=== PATIENT | female | born 1970 | race Caucasian/White ===

== ENCOUNTER → 2017-01-21 | Outpatient (CLI) | payer OTHER ==
--- NOTE | 2017-01-21 11:56 | EST ---
DATE OF SERVICE: 01/21/2014 AGE: 46Y SEX: F HT: 61" WT: 105 lbs. Protocol Julio Cesar: X Other: Stage: I Dur. of Exercise: 3 minutes *Heart Rate Blood Pressure *Rest: 113 Rest: 216/94 * *Max. Achieved: 134 Maximum BP: 216/94 85% PMHR: ( ) 100% PMHR: ( ) *METS: 4 INDICATIONS: Chest pain. MEDICATIONS: Baseline EKG shows sinus rhythm, normal axis, normal intervals. Patient exercised on Julio Cesar protocol for a total of 3 minutes, achieving 4 METs, 77% of predicted maximal heart rate. The test was stopped due to inability to walk. CONCLUSIONS: 1. Extremely poor exercise tolerance. 2. Inconclusive EKG part of the stress test due to inability to attain target heart rate.
== END ==
LOC: RADNMMAIN 10:23
PROVIDERS: ATTEND Internal Medicine
DX: J20.9 Acute bronchitis, unspecified (principal); R07.89 Other chest pain
CPT/HCPCS: 93017

== ENCOUNTER → 2017-02-26 | Outpatient (CLI) | payer OTHER | END | disposition home or self-care (01) | LOC: LABWHC1 08:52 | PROVIDERS: ATTEND Psychiatry & Neurology Neurology | DX: G35 Multiple sclerosis (principal) | CPT/HCPCS: 36415; 82306; 84439; 84443; 84450; 84460 ==

== ENCOUNTER → 2017-02-28 | Outpatient (CLI) | payer OTHER ==
--- NOTE | 2017-03-04 10:33 | MM ---
Reason for exam: screening (asymptomatic). Last mammogram was performed 1 year and 3 months ago. Physical Findings: A clinical breast exam by your physician is recommended on an annual basis and results should be correlated with mammographic findings. MG Screening Mammo w CAD Bilateral CC and MLO view(s) were taken. Prior study comparison: December 01, 2015, bilateral MG screening mammo w CAD. The breast tissue is extremely dense which could obscure a lesion on mammography. No significant changes when compared with prior studies. ASSESSMENT: Negative, BI-RAD 1 RECOMMENDATION: Routine screening mammogram of both breasts in 1 year. Patient should continue monthly self breast exams. A negative mammogram should not preclude additional follow up of suspicious palpable abnormalities.
== END | disposition home or self-care (01) ==
LOC: RADMAMWWP 10:02
PROVIDERS: ATTEND Obstetrics & Gynecology
DX: Z12.31 Encounter for screening mammogram for malignant neoplasm of breast (principal)

== ENCOUNTER → 2017-03-08 | Outpatient (CLI) | payer OTHER ==
--- NOTE | 2017-03-09 07:08 | MR ---
EXAMINATION TYPE: MR lumbar spine wo con DATE OF EXAM: 03/08/2017 10:44 AM COMPARISON: 06/09/2015 HISTORY: 46-year-old female with low back pain TECHNIQUE: Multiplanar, multisequence images of the lumbar spine were acquired. FINDINGS: Vertebral body heights are preserved and alignment is maintained. No suspicious bone marrow replacement. Mild desiccation of the L4-L5 and L5-S1 intervertebral discs with diffuse disc bulging. Mild disc hei ght loss at L5-S1. At L4-L5, there is a left intraforaminal annular fissure redemonstrated. Conus medullaris is normal. From T12 through L4 levels, no significant spinal canal or neuroforaminal stenosis. At L4-L5, mild bulging disc with a left intraforaminal annular fissure. Disc material here closely ap proaches the traversing left L5 nerve root. There is minimal bilateral inferior neural foraminal narr owing. No spinal canal stenosis. Overall changes are not significantly progressed from prior. At L5-S1, there is mild diffuse disc bulge without significant spinal canal or neuroforaminal stenosi s. No prevertebral or paravertebral soft tissue abnormality. IMPRESSION: 1. Relatively similar mild degenerative disc disease at L4-L5 and L5-S1 with mild disc desiccation an d mild bulging discs. Mild disc height loss at L5-S1. 2. Redemonstrated left intraforaminal annular fissure at L4-L5. Disc material here closely approaches the traversing left L5 nerve root. 3. Minimal bilateral inferior foraminal narrowing at L4-L5. No high-grade foraminal or canal compromi se.
== END | disposition home or self-care (01) ==
LOC: RADMRIMAIN 10:06
PROVIDERS: ATTEND Physical Medicine & Rehabilitation
DX: M51.17 Intervertebral disc disorders with radiculopathy, lumbosacral region (principal); M99.73 Connective tissue and disc stenosis of intervertebral foramina of lumbar region
CPT/HCPCS: 72148

== ENCOUNTER → 2018-03-20 | Outpatient (CLI) | payer OTHER ==
--- NOTE | 2018-03-23 09:54 | MM ---
Reason for exam: screening (asymptomatic). Last mammogram was performed 1 year and 1 month ago. Physical Findings: A clinical breast exam by your physician is recommended on an annual basis and results should be correlated with mammographic findings. MG Screening Mammo w CAD Bilateral CC and MLO view(s) were taken. Prior study comparison: February 28, 2017, bilateral MG screening mammo w CAD. December 01, 2015, bilateral MG screening mammo w CAD. The breast tissue is extremely dense which could obscure a lesion on mammography. No significant changes when compared with prior studies. ASSESSMENT: Negative, BI-RAD 1 RECOMMENDATION: Routine screening mammogram of both breasts in 1 year.
== END | disposition home or self-care (01) ==
LOC: RADMAMWWP 14:39
PROVIDERS: ATTEND Obstetrics & Gynecology
DX: Z12.31 Encounter for screening mammogram for malignant neoplasm of breast (principal)
CPT/HCPCS: 77067

== ENCOUNTER → 2018-08-27 | Outpatient (CLI) | payer OTHER ==
--- NOTE | 2018-08-27 23:55 | MR ---
EXAMINATION TYPE: MR brain wo con DATE OF EXAM: 08/27/2018 COMPARISON: 10/25/2015 HISTORY: Multiple sclerosis. Weakness. Standard multiplanar, multisequence MRI departmental protocol Exam without contrast. Ventricles have normal size. There is no mass effect nor midline shift. There is no sign of intracr anial hemorrhage. On the T2 and FLAIR images there are scattered white matter high signal foci in bot h cerebral hemispheres predominantly in the parietal lobes. These measure up to 6 mm. Total number is less than 15. Cerebellum appears normal. Brainstem appears normal. Sella turcica is normal. Corpus c allosum appears normal. There is no evidence of cortical infarct. Impression Periventricular white matter lesions as above consistent with demyelinating disease. No cortical infa rct. No significant change compared to old exam. I see no evidence of any new white matter disease.
== END | disposition home or self-care (01) ==
LOC: RADMRIMAIN 07:06
PROVIDERS: ATTEND Psychiatry & Neurology Neurology
DX: G93.89 Other specified disorders of brain (principal); G35 Multiple sclerosis
CPT/HCPCS: 70551

== ENCOUNTER → 2019-02-05 | Outpatient (CLI) | payer OTHER ==
--- NOTE | 2019-02-05 08:26 | MR ---
EXAMINATION TYPE: MR hip LT wo con DATE OF EXAM: 02/05/2019 COMPARISON: None. HISTORY: Pain in left hip Standard multiplanar, multisequence MRI departmental protocol Multiplanar, multisequence images of the pelvis focus in the left hip were acquired. FINDINGS: Bone marrow signal intensity is preserved. There is no suspicious edema seen throughout the pelvis including left hip. Femoral head shapes are symmetric and maintained bilaterally. No serpigin ous low T1 signal to suggest avascular necrosis. There are symmetric physiologic tiny bilateral hip j oint effusions. Mild increased fluid signal at level of right greater trochanter is seen coronal image 9. No suspicio us fluid signal seen at level of left greater or lesser trochanters. Muscle bulk bilateral thighs is symmetric and felt within normal limits. No suspicious groin hernia o r adenopathy is present bilaterally. In the left hip labrum appears grossly intact given limitation o f nonarthrogram study. Patient has very little intra-abdominal fat. Bladder is poorly distended and thus suboptimally evalua james. There is bulky lobulated anteverted uterus with intrauterine fibroids measuring up to 2.5 cm paresh g axis axial image 11. No concerning pelvic fluid collection seen. No suspicious bowel dilatation not ed. IMPRESSION: No significant finding seen to account for patient's symptoms of left hip pain. Fibroid uterus noted.
== END | disposition home or self-care (01) ==
LOC: RADMRIMAIN 07:41
PROVIDERS: ATTEND Internal Medicine
DX: D25.9 Leiomyoma of uterus, unspecified (principal); M25.552 Pain in left hip

== ENCOUNTER → 2019-07-22 | Outpatient (CLI) | payer OTHER ==
--- NOTE | 2019-07-22 11:20 | MM ---
Reason for exam: screening (asymptomatic). Last mammogram was performed 1 year and 4 months ago. History: Patient is postmenopausal. Took hormonal contraceptives for 1 month. Physical Findings: A clinical breast exam by your physician is recommended on an annual basis and results should be correlated with mammographic findings. MG Screening Mammo w CAD Bilateral CC and MLO view(s) were taken. Prior study comparison: March 20, 2018, bilateral MG screening mammo w CAD. February 28, 2017, bilateral MG screening mammo w CAD. The breast tissue is extremely dense which could obscure a lesion on mammography. Developing asymmetry right posterior outer aspect. ASSESSMENT: Incomplete: need additional imaging evaluation, BI-RAD 0 RECOMMENDATION: Special view mammogram of the right breast. If lesion persists on supplemental views, image directed ultrasound is recommended. [facility] will attempt to contact patient to return for supplemental views and ultrasound if indicated.
== END | disposition home or self-care (01) ==
LOC: RADMAMWWP 10:17
PROVIDERS: ATTEND Obstetrics & Gynecology
DX: Z12.31 Encounter for screening mammogram for malignant neoplasm of breast (principal)
CPT/HCPCS: 77067

== ENCOUNTER → 2019-08-03 | Outpatient (CLI) | payer OTHER ==
--- NOTE | 2019-08-03 12:19 | MM ---
Reason for exam: additional evaluation requested from abnormal screening. Last mammogram was performed less than 1 month ago. History: Patient is postmenopausal. Took hormonal contraceptives for 1 month. Physical Findings: Nurse did not find any significant physical abnormalities on exam. MG Work Up Mamm w CAD RT Spot compression CC, spot compression MLO, ML, and LM view(s) were taken of the right breast. Prior study comparison: July 22, 2019, bilateral MG screening mammo w CAD. March 20, 2018, bilateral MG screening mammo w CAD. The breast tissue is extremely dense which could obscure a lesion on mammography. 5mm central posterior and lateral nodule persists. These results were verbally communicated with the patient and result sheet given to the patient on 08/03/19. ASSESSMENT: Incomplete: need additional imaging evaluation, BI-RAD 0 RECOMMENDATION: Ultrasound of the right breast. (lateral half)
--- NOTE | 2019-08-03 12:21 | USB ---
Reason for exam: additional evaluation requested from abnormal screening. History: Patient is postmenopausal. Took hormonal contraceptives for 1 month. US Breast Workup Limited RT Right limited breast ultrasound including focal area of concern, retroareolar and axilla demonstrates a 4 x 3 x 4mm oval, cystic lesion at 7 o'clock. Scanned 6-12 o'clock. This may correspond to the mammographic finding. These results were verbally communicated with the patient and result sheet given to the patient on 08/03/19. ASSESSMENT: Probably benign, BI-RAD 3 RECOMMENDATION: Follow-up diagnostic mammogram of the right breast in 6 months.
== END | disposition home or self-care (01) ==
LOC: RADMAMWWP 10:29
PROVIDERS: ATTEND Obstetrics & Gynecology
DX: R92.8 Other abnormal and inconclusive findings on diagnostic imaging of breast (principal)
CPT/HCPCS: 77065

== ENCOUNTER → 2020-02-18 | Outpatient (CLI) | payer OTHER ==
--- NOTE | 2020-02-18 11:56 | XR ---
EXAMINATION TYPE: XR chest 2V DATE OF EXAM: 02/18/2020 COMPARISON: Chest x-ray August 25, 2015 HISTORY: History of COPD with left-sided pain. TECHNIQUE: Frontal and lateral views of the chest are obtained. FINDINGS: There is no focal air space opacity, pleural effusion, or pneumothorax seen. The cardiac silhouette size is within normal limits. The osseous structures are intact. IMPRESSION: No acute cardiopulmonary process. No significant change from prior.
== END | disposition home or self-care (01) ==
LOC: RADXRMAIN 11:36
PROVIDERS: ATTEND Internal Medicine
DX: R07.9 Chest pain, unspecified (principal)
CPT/HCPCS: 71046

== ENCOUNTER → 2020-08-08 | Outpatient (CLI) | payer OTHER ==
--- NOTE | 2020-08-08 11:08 | MM ---
Reason for exam: additional evaluation requested from prior study. Last mammogram was performed 1 year ago. History: Patient is postmenopausal. Took hormonal contraceptives for 1 month. Physical Findings: Nurse did not find any significant physical abnormalities on exam. MG Diagnostic Mammo w CAD KATELYNN Bilateral CC, MLO, and XCCL view(s) were taken. Prior study comparison: August 03, 2019, right breast MG work up mamm w CAD RT. July 22, 2019, bilateral MG screening mammo w CAD. The breast tissue is extremely dense which could obscure a lesion on mammography. Finding: There is a 7 mm equal density (isodense), obscured oval mass in the outer quadrant, central position of the right breast. These results were verbally communicated with the patient and result sheet given to the patient on 08/08/20. ASSESSMENT: Incomplete: need additional imaging evaluation, BI-RAD 0 RECOMMENDATION: Ultrasound of the right breast.
--- NOTE | 2020-08-08 11:10 | USB ---
Reason for exam: additional evaluation requested from abnormal screening. History: Patient is postmenopausal. Took hormonal contraceptives for 1 month. US Breast Limited RT Right limited breast ultrasound including focal area of concern, retroareolar and axilla demonstrates a 0.5 x 0.5 x 0.3cm oval, cystic lesion at 7 o'clock and a 0.5 x 0.4 x 0.3cm oval, hypoechoic lymph node at 7 o'clock. These results were verbally communicated with the patient and result sheet given to the patient on 08/08/20. ASSESSMENT: Probably benign, BI-RAD 3 RECOMMENDATION: Follow-up diagnostic mammogram and ultrasound of the right breast in 6 months.
== END | disposition home or self-care (01) ==
LOC: RADMAMWWP 09:32
PROVIDERS: ATTEND Obstetrics & Gynecology
DX: R92.8 Other abnormal and inconclusive findings on diagnostic imaging of breast (principal)
CPT/HCPCS: 77066

== ENCOUNTER 2021-11-14 12:29 | Emergency (ER) | payer OTHER ==
[2021-11-14 12:54] VITALS: BP 122/79; PULSE 111; RESP 20; TEMP 97.8
[2021-11-14 13:16] LABS: Basophils % (A) 0 %; Eosinophils # (A) 0.3 k/uL (0-0.7); Eosinophils % (A) 3 %; HCT 41.2 % (34.0-46.0); HGB 13.7 gm/dL (11.4-16.0); Lymphocytes # (A) 2.4 k/uL (1.0-4.8); Lymphocytes % (A) 19 %; MCH 31.6 pg (25.0-35.0); MCHC 33.1 g/dL (31.0-37.0); MCV 95.4 fL (80.0-100.0); Mean Platelet Volume 7.2; Monocytes # (A) 0.7 k/uL (0-1.0); Monocytes % (A) 6 %; Neutrophils # (A) 8.7 k/uL (1.3-7.7); Neutrophils % (A) 71 %; RBC 4.32 m/uL (3.80-5.40); RDW 13.5 % (11.5-15.5); WBC 12.3 k/uL (3.8-10.6)
[2021-11-14 13:27] LABS: Platelet Count 1213 k/uL (150-450)
[2021-11-14 13:34] LABS: ALT 9 U/L (4-34); AST 16 U/L (14-36); African American GFR (CKD) >90 (>60 ml/min/1.73 sqM); Albumin 4.2 g/dL (3.5-5.0); Alkaline Phosphatase 93 U/L (38-126); Anion Gap 14 mmol/L; Blood Urea Nitrogen 15 mg/dL (7-17); Calcium 9.8 mg/dL (8.4-10.2); Carbon Dioxide 19 mmol/L (22-30); Chloride 105 mmol/L (98-107); Glucose 141 mg/dL (74-99); Lipase 64 U/L (23-300); Non-African American GFR(CKD) >90 (>60 ml/min/1.73 sqM); Potassium 3.3 mmol/L (3.5-5.1); Sodium 138 mmol/L (137-145); Total Bilirubin 0.7 mg/dL (0.2-1.3); Total Protein 7.3 g/dL (6.3-8.2)
== END 2021-11-14 14:47 | disposition left against medical advice (07) ==
LOC: EC 12:29
DX: Z53.21 Procedure and treatment not carried out due to patient leaving prior to being seen by health care provider (principal)
CPT/HCPCS: 36415; 80053; 83605; 83690; 85025; 99499

== ENCOUNTER → 2023-04-19 | Outpatient (CLI) | payer OTHER ==
--- NOTE | 2023-04-20 18:19 | MR ---
EXAMINATION TYPE: MR brain and iac wo/w con DATE OF EXAM: 04/19/2023 8:18 AM CLINICAL INDICATION:Female, 52 years old with history of H90.42 asymmetric hearing loss; COMPARISON: MR brain 08/27/2018, 10/25/2015 TECHNIQUE: Multi planar, multi sequence imaging was performed through the brain. Specialized thin s equences were obtained through the internal auditory canals. Pre-and post gadolinium sequences were obtained. MR contrast: IV Contrast: 5 cc Gadavist FINDINGS: The pappas-white junctions, ventricular system, and cisterns appear unremarkable. Scattered foci of h igh T2 signal intensity are seen within the periventricular white matter. Some of these white matter lesions are orthogonal to the ventricles. View of these lesions appear more prominent/fractionally in creased in size lesions, example includes the left frontal lobe the white matter change now measuring 5 mm, previously 4 mm. Midline no structures show no abnormality. Diffusion-weighted imaging shows no evidence of restricted diffusion. The susceptibility weighted images do not reveal any evidence for micro-hemorrhage. The bone marrow signal is within normal limits. Paranasal sinuses and mastoid air cells: Mild scattered paranasal sinus disease. Visualized orbits: Orbital contents are intact. After administration of gadolinium, no abnormal enhancement is seen. The internal auditory canal sequences demonstrate no significant irregularity. The 7th cranial nerve s, 8 cranial nerves, and cerebellar pontine angles appear unremarkable. After the administration esdras olinium, no abnormal enhancement is seen within the internal auditory canals. Vascular loop: None. IMPRESSION: 1. No evidence of intracranial mass nor acute/subacute CVA. 2. No evidence of internal auditory canal abnormality. 3. white matter changes some of which are orthogonal to the ventricles correlate for multiple sclero sis. This is mildly progressed from 2018. No evidence for active demyelination.
== END | disposition home or self-care (01) ==
LOC: RADMRIMAIN 07:21
DX: H90.42 Sensorineural hearing loss, unilateral, left ear, with unrestricted hearing on the contralateral side (principal); R90.82 White matter disease, unspecified
CPT/HCPCS: 70553; A9585

== ENCOUNTER → 2023-09-29 | Outpatient (CLI) | payer OTHER ==
--- NOTE | 2023-09-29 11:49 | FL ---
Exam Date: 09/29/2023 11:43 AM. Modified barium swallow for dysphagia. Consistencies administered: Various consistency of barium. Fluoro time: 52 sec No images were sent to PACS. Please see speech pathology report. DAP: Not reported by machine [email or web address]
== END | disposition home or self-care (01) ==
LOC: RADFLMAIN 10:41
PROVIDERS: ATTEND Psychiatry & Neurology Neurology
DX: R13.10 Dysphagia, unspecified (principal)
CPT/HCPCS: 74230

== ENCOUNTER → 2023-12-23 | Outpatient (CLI) | payer OTHER ==
--- NOTE | 2023-12-24 14:53 | MM ---
Reason for Exam: Screening (asymptomatic). Last mammogram was performed 3 year(s) and 5 month(s) ago. Patient History: Menarche at age 11. First Full-Term at age 18. Postmenopausal. Hormonal Contraceptives for 1 month. Risk Values: Libertad 5 year model risk: 0.9%. NCI Lifetime model risk: 6.8%. Prior Study Comparison: 07/22/2019 Bilateral Screening Mammogram, [facility]. 08/03/2019 Right Diagnostic Mammogram, [facility]. 08/08/2020 Bilateral Diagnostic Mammogram, [facility]. Tissue Density: The breast tissue is heterogeneously dense. This may lower the sensitivity of mammography. Findings: Analyzed By CAD. There is no suspicious group of microcalcifications or new suspicious mass. Overall Assessment: Negative, BI-RAD 1 Management: Screening Mammogram of both breasts in [address] [facility] will attempt to contact patient to return for supplemental views and ultrasound if indicated. Patient should continue monthly self-breast exams. A clinical breast exam by your physician is recommended on an annual basis. This exam should not preclude additional follow-up of suspicious palpable abnormalities. Note on Libertad scores and lifetime risk: 1. A Libertad score greater than 3% is considered moderate risk. If this is the case, consider specialist referral to assess eligibility for a risk reducing agent. 2. If overall lifetime risk for the development of breast cancer is 20% or higher, the patient may qualify for future screening with alternating mammogram and breast MRI. Electronically signed and approved by: Arsh Eddy DO
== END | disposition home or self-care (01) ==
LOC: RADMAMWWP 09:56
PROVIDERS: ATTEND Family Medicine
DX: Z12.31 Encounter for screening mammogram for malignant neoplasm of breast (principal); Z78.0 Asymptomatic menopausal state
CPT/HCPCS: 77067

== ENCOUNTER → 2024-10-22 | Outpatient (CLI) | payer OTHER ==
--- NOTE | 2024-10-22 10:25 | XR ---
EXAMINATION TYPE: XR spine complete AP and Lat DATE OF EXAM: 10/22/2024 9:31 AM COMPARISON: None CLINICAL INDICATION: Female, 53 years old with history of M54.9 Back Pain; TECHNIQUE: XR spine complete AP and Lat views of the spine in Frontal and lateral projections. FINDINGS: No evidence of acute fracture. There is scattered multilevel disk space narrowing without loss of ve rtebral body height. There is normal alignment of the thoracic vertebral bodies. Scattered osteophyte formation along the anterior and lateral aspects of the vertebral bodies. Neural foramen are patent given limitations of this exam. Spinal canal appears patent. IMPRESSION: 1. No acute osseous pathology. 2. [id number] multilevel degeneration changes of the spine. [facility], , 10/22/2024 10:23 AM
== END | disposition home or self-care (01) ==
LOC: RADXRMAIN 08:58
PROVIDERS: ATTEND Internal Medicine Geriatric Medicine
DX: M51.25 Other intervertebral disc displacement, thoracolumbar region (principal)
CPT/HCPCS: 72082

== ENCOUNTER → 2025-02-02 | Outpatient (CLI) | payer OTHER ==
--- NOTE | 2025-02-07 07:23 | MM ---
Reason for Exam: Screening (asymptomatic). Last mammogram was performed 1 year(s) and 1 month(s) ago. Patient History: Menarche at age 11. First Full-Term at age 18. Postmenopausal. Hormonal Contraceptives for 1 month. Risk Values: Libertad 5 year model risk: 0.9%. NCI Lifetime model risk: 6.7%. Prior Study Comparison: 08/03/2019 Right Diagnostic Mammogram, [facility]. 08/08/2020 Bilateral Diagnostic Mammogram, [facility]. 12/23/2023 Bilateral MG screening mammo w CAD, [facility]. Tissue Density: The breasts are extremely dense, which lowers the sensitivity of mammography. Findings: Analyzed By CAD. Asymmetric density in the upper central right breast and outer lower left breast for which spot compression view recommended. Most likely related to superimposed tissues. No suspicious calcifications. Overall Assessment: Incomplete: need additional imaging evaluation, BI-RAD 0 Management: Diagnostic Mammogram of both breasts. . Patient should continue monthly self-breast exams. A clinical breast exam by your physician is recommended on an annual basis. This exam should not preclude additional follow-up of suspicious palpable abnormalities. Note on Libertad scores and lifetime risk: 1. A Libertad score greater than 3% is considered moderate risk. If this is the case, consider specialist referral to assess eligibility for a risk reducing agent. 2. If overall lifetime risk for the development of breast cancer is 20% or higher, the patient may qualify for future screening with alternating mammogram and breast MRI. [facility], , 02/02/2025 10:20 AM. Electronically signed and approved by: Raymon Echevarria M.D. Radiologis
== END | disposition home or self-care (01) ==
LOC: RADMAMWWP 09:23
PROVIDERS: ATTEND Family Medicine
DX: Z12.31 Encounter for screening mammogram for malignant neoplasm of breast (principal); R92.343 Mammographic extreme density, bilateral breasts; Z78.0 Asymptomatic menopausal state; Z92.0 Personal history of contraception
CPT/HCPCS: 77067

== ENCOUNTER → 2025-02-09 | Outpatient (CLI) | payer OTHER ==
--- NOTE | 2025-02-09 13:07 | MM ---
Reason for Exam: Additional evaluation requested from abnormal screening. Last screening mammogram was performed less than 1 month ago. Patient History: Menarche at age 11. First Full-Term at age 18. Postmenopausal. Hormonal Contraceptives for 1 month. Risk Values: Libertad 5 year model risk: 0.9%. NCI Lifetime model risk: 6.7%. Prior Study Comparison: 12/23/2023 Bilateral MG screening mammo w CAD, [facility]. 02/02/2025 Bilateral MG screening mammo w CAD, [facility]. Tissue Density: The breasts are extremely dense, which lowers the sensitivity of mammography. Findings: Analyzed By CAD. No persistent nodules or masses on additional views obtained within either breast. No suspicious microcalcifications evident. Overall Assessment: Negative, BI-RAD 1 Management: Screening Mammogram of both breasts in 1 year. . Results were given to the patient verbally at the time of exam. Patient should continue monthly self-breast exams. A clinical breast exam by your physician is recommended on an annual basis. This exam should not preclude additional follow-up of suspicious palpable abnormalities. Note on Libertad scores and lifetime risk: 1. A Libertad score greater than 3% is considered moderate risk. If this is the case, consider specialist referral to assess eligibility for a risk reducing agent. 2. If overall lifetime risk for the development of breast cancer is 20% or higher, the patient may qualify for future screening with alternating mammogram and breast MRI. [facility], , 02/09/2025 1:04 PM. Electronically signed and approved by: Charles Peters M.D. Radiologis
== END | disposition home or self-care (01) ==
LOC: RADMAMWWP 12:31
PROVIDERS: ATTEND Family Medicine
DX: R92.8 Other abnormal and inconclusive findings on diagnostic imaging of breast (principal); R92.343 Mammographic extreme density, bilateral breasts; Z78.0 Asymptomatic menopausal state; Z92.0 Personal history of contraception
CPT/HCPCS: 77066; G0279; 77062

== ENCOUNTER 2025-06-06 10:14 | Emergency (ER) | payer OTHER ==
[2025-06-06 10:19] VITALS: TEMP 97.5
--- NOTE | 2025-06-06 11:10 | ED ---
General Adult HPI - General Chief complaint: Weakness Stated complaint: Vomiting,SOB Time Seen by Provider: 06/06/25 10:19 Source: patient Mode of arrival: ambulatory Limitations: no limitations - History of Present Illness Initial comments: Dictation was produced using [employer] dictation software. please excuse any grammatical, word or spelling errors. Chief Complaint: 54-year-old female with history of MS presents to the ER for cough total body pain History of Present Illness: Patient is 54-year-old female history of multiple sclerosis. States that she is here for couple days of myalgias along with cough. States that she has pain mostly to her chest and upper abdomen along with her extremities. Patient has had a mildly productive cough. No obvious sick contacts. No fever chills or night sweats. Patient reports significant malaise and excessive sleepiness. The ROS documented in this emergency department record has been reviewed and confirmed by me. Those systems with pertinent positive or negative responses have been documented in the HPI. All other systems are other negative and/or noncontributory. - Related Data Home Medications Medication Instructions Recorded Confirmed Baclofen [Lioresal] 10 mg PO TID 06/06/25 06/06/25 Escitalopram [Lexapro] 20 mg PO DAILY 06/06/25 06/06/25 buPROPion HCL [Wellbutrin XL] 150 mg PO DAILY 06/06/25 06/06/25 Previous Rx's Medication Instructions Recorded Amoxic-Pot Clav 875-125Mg 1 tab PO BID 10 Days #20 tab 06/06/25 [Augmentin 875-125] Azithromycin [Zithromax Z Pack] 1 tab PO DIRECTED #6 tab 06/06/25 Allergies Allergy/AdvReac Type Severity Reaction Status Date / Time No Known Allergies Allergy Verified 06/06/25 14:05 Review of Systems ROS Statement: Those systems with pertinent positive or pertinent negative responses have been documented in the HPI. ROS Other: All systems not noted in ROS Statement are negative. Past Medical History Past Medical History: Fibromyalgia, Hearing Disorder / Deafness Additional Past Medical History / Comment(s): scoliosis, MS History of Any Multi-Drug Resistant Organisms: None Reported Past Surgical History: Tubal Ligation Past Psychological History: Anxiety, Depression Smoking Status: Current every day smoker Past Alcohol Use History: None Reported Past Drug Use History: Marijuana General Exam - General Exam Comments Initial Comments: PHYSICAL EXAM: General Impression: Alert and oriented x3, not in acute distress HEENT: Normocephalic atraumatic, extra-ocular movements intact, pupils equal and reactive to light bilaterally, mucous membranes moist. Cardiovascular: Heart regular rate and rhythm Chest: Able to complete full sentences, no retractions, no tachypnea Abdomen: abdomen soft, non-tender, non-distended, no organomegaly Musculoskeletal: Pulses present and equal in all extremities, no peripheral edema Motor: no focal deficits noted Neurological: CN II-XII grossly intact, no focal motor or sensory deficits noted Skin: Intact with no visualized rashes Psych: Normal affect and mood Limitations: no limitations Course Vital Signs 06/06/25 10:15 Temperature 97.5 F L Pulse Rate 90 Respiratory 20 Rate O2 Sat by Pulse 95 Oximetry EKG Findings - EKG Comments: EKG Findings:: My EKG interpretation: Ventricular rate 84, sinus rhythm, WY 151, QRS 82, QTc 33. No WY prolongation, no QTC prolongation, no ST or T-wave changes noted. Overall, this EKG is unremarkable Medical Decision Making - Medical Decision Making Was pt. sent in by a medical professional or institution (, PA, REHABILITATION THERAPIST, urgent care, hospital, or alf...) When possible be specific @ -No Did you speak to anyone other than the patient for history (EMS, parent, family, police, friend...)? What history was obtained from this source @ -No Did you review nursing and triage notes (agree or disagree)? Why? @ -I reviewed and agree with nursing and triage notes Were old charts reviewed (outside hosp., previous admission, EMS record, old EKG, old radiological studies, urgent care reports/EKG's, alf records)? Report findings @ -No old charts were reviewed Differential Diagnosis (chest pain, altered mental status, abdominal pain women, abdominal pain men, vaginal bleeding, musculoskeletal, weakness, fever, dyspnea, syncope, headache, dizziness, GI bleed, back pain, seizure, CVA, palpatations, mental health)? @ -Differential Weakness: Hypoglycemia, shock, sepsis, hyponatremia, anemia, infection, PA, ETOH, adverse medicine reaction, overdose, stroke, this is not meant to be an all-inclusive list. EKG interpreted by me (3pts min.). @ -See above X-rays interpreted by me (1pt min.). @ -Abdominal chest x-ray shows no acute processes CT interpreted by me (1pt min.). @ -None done U/S interpreted by me (1pt. min.). @ -None done What testing was considered but not performed or refused? (CT, X-rays, U/S, labs)? Why? @ -None What meds were considered but not given or refused? Why? @ -None Was smoking cessation discussed for >3mins.? @ -No Were there social determinants of health that impacted care today? How? (Homelessness, low income, unemployed, alcoholism, drug addiction, transportation, low edu. Level, literacy, decrease access to med. care, retirement, rehab)? @ -No Was there de-escalation of care discussed even if they declined (Discuss DNR or withdrawal of care, Hospice)? DNR status @ -No What co-morbidities impacted this encounter? (DM, HTN, Smoking, COPD, CAD, Cancer, CVA, ARF, Chemo, Hep., AIDS, mental health diagnosis, sleep apnea, morbid obesity)? @ -None Was patient admitted / discharged? Hospital course, mention meds given and route, prescriptions, significant lab abnormalities, going to OR and other p ertinent info. @ -54-year-old female presents to the emergency department with myalgias, fatigue and weakness. Vital signs upon arrival are within acceptable limits. Laboratory evaluation obtained. Potassium 3.0. Rest of labs unremarkable. X- ray shows pneumonia. Patient given potassium and antibiotics. Patient agreeable discharge. She is well-appearing has no high risk features. Discharg e advised follow-up with primary care doctor. Did you discuss the management of the patient with other professionals (professionals i.e. , PA, REHABILITATION THERAPIST, lab, RT, psych nurse, social media marketing specialist, fire alarm dispatcher, teacher, detention officer, mattress spring encaser)? Give summary @ -No Was critical care preformed (if so, how long)? @ -No Undiagnosed new problem with uncertain prognosis? @ -No Drug Therapy requiring intensive monitoring for toxicity (Heparin, Nitro, Insulin, Cardizem)? @ -No Were any procedures done? @ -No Diagnosis/symptom? Acute, or Chronic, or Acute on Chronic? Uncomplicated (without systemic symptoms) or Complicated (systemic symptoms)? @ -Pneumonia Side effects of treatment? @ -No Exacerbation, Progression, or Severe Exacerbation? @ -No Poses a threat to life or bodily function? How? (Chest pain, USA, PA, pneumonia, PE, COPD, DKA, ARF, appy, cholecystitis, CVA, Diverticulitis, Homicidal, S uicidal, threat to staff... and all critical care pts) @ -yes - Lab Data Result diagrams: 06/06/25 11:17 06/06/25 11:17 Lab Results 06/06/25 06/06/25 06/06/25 Range/Units 11:17 11:17 11:17 WBC 10.41 H (4.50-10.00) 10*3/uL RBC 4.12 (4.10-5.20) 10*6/uL Hgb 13.0 (12.0-15.0) g/dL Hct 36.2 L (37.2-46.3) % MCV 87.9 (80.0-97.0) fL MCH 31.6 (27.0-32.0) pg MCHC 35.9 (32.0-37.0) g/dL Plt Count 228 (140-440) 10*3/uL MPV 9.1 L (9.5-12.2) fL Immature Gran % (Auto) 0.4 % Neutrophils % 86.6 % Lymphocytes % 6.2 % Monocytes % 6.6 % Eosinophils % 0.0 % Basophils % 0.2 % Immature Gran # 0.04 (0.00-0.04) 10*3/uL Neutrophils # 9.01 H (1.80-7.70) 10*3/uL Lymphocytes # 0.65 L (0.90-5.00) 10*3/uL Monocytes # 0.69 (0.20-1.00) 10*3/uL Eosinophils # 0.00 L (0.04-0.35) 10*3/uL Basophils # 0.02 (0.00-0.10) 10*3/uL Sodium 133 L (137-145) mmol/L Potassium 3.0 L (3.5-5.1) mmol/L Chloride 99 (98-107) mmol/L Carbon Dioxide 22 (22-30) mmol/L Anion Gap 12 mmol/L BUN 11 (7-17) mg/dL Creatinine 0.58 (0.52-1.04) mg/dL Est GFR (CKD-EPI)AfAm >90 (>60 ml/min/1.73 sqM) Est GFR (CKD-EPI)NonAf >90 (>60 ml/min/1.73 sqM) Glucose 105 H (74-99) mg/dL Calcium 8.9 (8.4-10.2) mg/dL Magnesium 2.0 (1.6-2.3) mg/dL Total Bilirubin 0.4 (0.2-1.3) mg/dL AST 24 (14-36) U/L ALT 15 (4-34) U/L Alkaline Phosphatase 93 (38-126) U/L Total Protein 6.4 (6.3-8.2) g/dL Albumin 3.8 (3.5-5.0) g/dL Influenza Type A (PCR) Not Detected (Not Detectd) Influenza Type B (PCR) Not Detected (Not Detectd) RSV (PCR) Not Detected (Not Detectd) SARS-CoV-2 (PCR) Not Detected (Not Detectd) Disposition Clinical Impression: Pneumonia Disposition: HOME SELF-CARE Condition: Fair Instructions (If sedation given, give patient instructions): Bacterial Pneumonia (ED) Prescriptions: Amoxic-Pot Clav 875-125Mg [Augmentin 875-125] 1 tab PO BID 10 Days #20 tab Azithromycin [Zithromax Z Pack] 1 tab PO DIRECTED #6 tab Is patient prescribed a controlled substance at d/c from ED?: No Referrals: Diana Adame MD [Primary Care Provider] - 1-2 days Time of Disposition: 14:19
[2025-06-06 11:20] LABS: Basophils # (A) 0.02 10*3/uL (0.00-0.10); Basophils % (A) 0.2 %; Eosinophils # (A) 0.00 10*3/uL (0.04-0.35); Eosinophils % (A) 0.0 %; HCT 36.2 % (37.2-46.3); HGB 13.0 g/dL (12.0-15.0); Lymphocytes # (A) 0.65 10*3/uL (0.90-5.00); Lymphocytes % (A) 6.2 %; MCH 31.6 pg (27.0-32.0); MCHC 35.9 g/dL (32.0-37.0); MCV 87.9 fL (80.0-97.0); Monocytes # (A) 0.69 10*3/uL (0.20-1.00); Monocytes % (A) 6.6 %; Neutrophils # (A) 9.01 10*3/uL (1.80-7.70); Neutrophils % (A) 86.6 %; Platelet Count 228 10*3/uL (140-440); RBC 4.12 10*6/uL (4.10-5.20); RDW 12.8 % (11.5-14.5); WBC 10.41 10*3/uL (4.50-10.00)
[2025-06-06 11:37] LABS: ALT 15 U/L (4-34); AST 24 U/L (14-36); African American GFR (CKD) >90 (>60 ml/min/1.73 sqM); Albumin 3.8 g/dL (3.5-5.0); Alkaline Phosphatase 93 U/L (38-126); Anion Gap 12 mmol/L; Blood Urea Nitrogen 11 mg/dL (7-17); Calcium 8.9 mg/dL (8.4-10.2); Carbon Dioxide 22 mmol/L (22-30); Chloride 99 mmol/L (98-107); Glucose 105 mg/dL (74-99); Magnesium 2.0 mg/dL (1.6-2.3); Non-African American GFR(CKD) >90 (>60 ml/min/1.73 sqM); Potassium 3.0 mmol/L (3.5-5.1); Sodium 133 mmol/L (137-145); Total Protein 6.4 g/dL (6.3-8.2)
[2025-06-06 11:56] LABS: RSV Not Detected (Not Detectd)
[2025-06-06] MEDS: POTASSIUM CHLORIDE ER 20 MEQ TAB.ER PO STA (12:29)
--- NOTE | 2025-06-06 12:49 | XR ---
EXAMINATION TYPE: XR abdomen acute w cxr DATE OF EXAM: 06/06/2025 12:39 PM INDICATION: Patient age:Female; 54 years old; Reason for study: chest and abdominal pain; PHH. COMPARISON: Chest radiograph 02/18/2020 TECHNIQUE: Two radiographic views of the abdomen (supine and upright) and an a chest radiograph were obtained. FINDINGS CHEST: Lungs/Pleura: No pleural effusion or pneumothorax. Right basilar patchy airspace opacities. Mediastinum: Unremarkable. Vasculature: Normal. Heart: Normal in size. Musculoskeletal: The osseous structures are intact. Other findings: No significant. FINDINGS ABDOMEN: Bowel gas pattern: Normal without dilated loops of small or large bowel. Fecal material and gas are d emonstrated throughout the colon and rectum. Ossifications: Pelvic phleboliths with suspected calcified fibroid. Musculoskeletal: Normal. Other: None. IMPRESSION: 1. No radiographic evidence for acute abdominal process. 2. Right basilar patchy airspace opacities concerning for pneumonia. [facility], , 06/06/2025 12:46 PM
[2025-06-06] MEDS: cefTRIAXone IN SWFI 1,000 MG/10 ML SYRINGE IVP STA (13:21)
[2025-06-06] MEDS: KETOROLAC 15 MG/ML 1 ML VIAL IVP STA (13:22)
[2025-06-06] MEDS: AZITHROMYCIN 500 MG in SODIUM CHLORIDE 0.9% 250 ML IVPB STA (13:23)
[2025-06-06] MEDS: ONDANSETRON 4 MG/2 ML VIAL IVP STA (13:34)
[2025-06-06 15:06] VITALS: BP 130/82; PULSE 89; RESP 16
== END 2025-06-06 15:06 | disposition home or self-care (01) ==
LOC: EC 10:14
DX: J18.9 Pneumonia, unspecified organism (principal); F17.200 Nicotine dependence, unspecified, uncomplicated
CPT/HCPCS: 36415; 93005; 80053; 83735; 85025; 87636; 74022; 99285; 96365; 96366; 96375; J2405; J0456; J0696; J1885